=== PATIENT | female | born 1965 | race African-American/Black ===

== ENCOUNTER 2017-12-08 15:03 | Inpatient (IN) | payer OTHER ==
[~2017-12-08] VITALS: Ht 172.7 cm; Wt 56.4 kg
--- NOTE | 2017-12-08 15:46 | ED PSYCHIATRIC COMPLAINT ---
History of Present Illness General Chief Complaint: General Adult Stated Complaint: BIBA PANIC ATTACK/ANXIETY Source: patient Exam Limitations: no limitations Allergies Coded Allergies: No Known Allergies (12/08/17) Triage Note: 51 Y/O FEMALE BIBA TO TRIAGE, C/O "ANXIETY" TODAY WHILE DRIVING HOME. STATES SHE HAS A HX BIPOLAR AND WAS DRIVING FROM WORK WHEN "I BEGAN TO FEEL SCARED AND HAD HEAVINESS ACROSS CHEST". STATES HEAVINESS HAS BEEN PRESENT SINCE TUESDAY. AT PRESENT, PT DENIES ALL COMPLAINTS STATING IT RESOLVED. DENIES SI/HI. TAKEN FOR EKG Triage Nurses Notes Reviewed? yes Onset: Gradual Duration: day(s): Timing: recent history Severity: moderate HPI: 51yo female with hx of bipolar disorder BIBA for anxiety symptoms while drive today. Patient states that she has had increasing anxiety since Tuesday however today she "felt like I was going to ". Patient reports increasing fear and panic, central chest pressure, and feeling faint. She has had chest pressure since Tuesday as well. Patient states that her psychiatrist recently changed one of her bipolar medications because she had low blood pressure. She is unsure if this is related to her recent anxiety. Patient currently takes Ativan 0.5mg BID PRN, she last took this medication this morning around 0730. The patient denies dyspnea, abdominal pain, vomiting, syncope, numbness. (Sasha CAT,Lianna Ventura) Vital Signs & Intake/Output Vital Signs & Intake/Output Vital Signs Date Time Temp Pulse Resp B/P B/P Pulse O2 O2 Flow FiO2 Mean Ox Delivery Rate 12/08 2250 98.0 75 16 149/84 99 Room Air 12/08 2153 98.0 77 22 146/79 99 Room Air 12/08 1913 97.8 83 20 153/83 99 Room Air 12/08 1529 Room Air 12/08 1506 95.7 79 18 149/87 95 Room Air (Latonia COOPER,Mukesh Buchanan) Reconcile Medications Albuterol Sulfate (Ventolin Hfa) 90 MCG HFA.AER.AD 2 PUF INH AD PRN ASTHMA ( Reported) Aspirin (Ecotrin*) 81 MG TABLET.DR 1 TAB PO DAILY HEART/BLOOD (Reported) Bupropion HCl (Bupropion HCl Sr) 200 MG TABLET.ER 1 TAB PO QAM MENTAL HEALTH (Reported) Cyanocobalamin (Vitamin B-12) (Unknown Strength) TABLET (Unknown Dose) PO DAILY SUPPLEMENT (Reported) Dextroamphetamine/Amphetamine (Dextroamp-Amphet ER 10 MG Cap) 10 MG CAP.ER.24H 1 CAP PO QAM ADD (Reported) Dextroamphetamine/Amphetamine (Dextroamp-Amphet ER 15 MG Cap) 15 MG CAP.ER.24H 1 CAP PO QAM ADD (Reported) Lactobacillus Acidophilus (Acidophilus) 1 EACH CAPSULE 1 CAP PO DAILY PROBIOTIC (Reported) Lorazepam 0.5 MG TABLET 1 TAB PO BID ANXIETY (Reported) Lorazepam 1 MG TABLET 1 TAB PO QPM ANXIETY/SLEEP (Reported) Montelukast Sodium 10 MG TABLET 1 TAB PO DAILY ALLERGIES/RESP. (Reported) Oxcarbazepine (Unknown Strength) TABLET (Unknown Dose) UNKNOWN (Reported) Ziprasidone HCl 80 MG CAPSULE 1 CAP PO QPM MENTAL HEALTH (Reported) with food (Taj Saleh MD) Past History Travel History Traveled to [place] past 21 day No Medical History Any Pertinent Medical History? 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 No (Lianna Aguilar) Review of Systems Review of Systems Constitutional: Reports: see HPI. EENTM: Reports: no symptoms. Respiratory: Reports: no symptoms. Cardiovascular: Reports: see HPI. GI: Reports: no symptoms. Genitourinary: Reports: no symptoms. Musculoskeletal: Reports: no symptoms. Skin: Reports: no symptoms. Neurological/Psychological: Reports: see HPI. Hematologic/Endocrine: Reports: no symptoms. Immunologic/Allergic: Reports: no symptoms. All Other Systems: Reviewed and Negative (Lianna Aguilar) Physical Exam Physical Exam General Appearance: well developed/nourished, no apparent distress, alert, awake Head: atraumatic, normal appearance Eyes: Bilateral: normal appearance. Ears, Nose, Throat: hearing grossly normal Neck: normal inspection, supple, full range of motion Respiratory: normal breath sounds, chest non-tender, no respiratory distress, lungs clear Cardiovascular: regular rate/rhythm, normal peripheral pulses Gastrointestinal: normal bowel sounds, soft, non-tender, no organomegaly Extremities: normal range of motion Neurological/Psychiatric: no motor/sensory deficits, awake, alert, normal mood/ affect Appearance/Memory/Insight: appropriate appearance Behavoir/Eye Contact/Speech: cooperative, good eye contact Thoughts/Hallucinations: normal thought pattern, no apparent hallucination Skin: intact, normal color, warm/dry SAD PERSONS Done? patient not suicidal (Sasha CAT,Lianna Ventura) Progress Differential Diagnosis: anxiety, panic disorder, ACS, pericarditis, costocondritis Diagnostic Imaging: Viewed by Me: Radiology Read. Discussed w/RAD: Radiology Read. CXR Impression: PATIENT: SOREN REAVES PRESENT AGE: 51 PATIENT ACCOUNT NO: [id number] : 64 LOCATION: [facility] ORDERING PHYSICIAN: Lianna CAT SERVICE DATE: 12/08/17 EXAM TYPE: RAD - XRY-CHEST XRAY, TWO VIEWS EXAMINATION: XR CHEST CLINICAL INFORMATION: Left chest pain. COMPARISON: None TECHNIQUE: 2 views of the chest were obtained. FINDINGS: No significant abnormality is noted involving the heart, lungs, mediastinum, bony thorax or soft tissues. IMPRESSION: Unremarkable examination. 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 <Electronically signed in Other Vendor System> SIGNED BY: Karl Mitchell MD 12/08/172005 Initial ED EKG: sinus rhythm @71bpm, nonspecific ST changes lateral leads Repeat EKG: changed (Lianna Aguilar) Plan of Care: Orders Procedure Date/time Status Regular Diet 12/09 B Active Patient Data 12/08 2226 Active EKG 12/08 2223 Active OXYGEN SETUP (GEN) 12/08 2000 Active Saline Lock 12/08 2000 Active Admit to inpatient 12/08 2000 Active Vital Signs 12/08 2000 Active Activity/Ambulation 12/08 2000 Active Code Status 12/08 2000 Active TROPONIN LEVEL 12/08 1845 Complete EKG 12/08 1845 Active Intake & Output 12/08 1719 Active TROPONIN LEVEL 12/08 1529 Complete COMPREHENSIVE METABOLIC PANEL 12/08 1529 Complete CBC WITHOUT DIFFERENTIAL 12/08 1529 Complete EKG 12/08 1505 Active Laboratory Tests 12/08/17 1850: Troponin I < 0.01 12/08/17 1545: Anion Gap 12, Estimated GFR > 60, BUN/Creatinine Ratio 17.8, Glucose 85, Calcium 9.8, Total Bilirubin 0.5, AST 22, ALT 40, Alkaline Phosphatase 89, Troponin I < 0.01, Total Protein 8.0, Albumin 4.9, Globulin 3.1, Albumin/Globulin Ratio 1.6, CBC w Diff NO MAN DIFF REQ, RBC 4.26, MCV 92.1, MCH 29.8, MCHC 32.4 L, RDW 12.9 , MPV 6.7 L, Gran % 77.0 H, Lymphocytes % 12.3 L, Monocytes % 9.8 H, Eosinophils % 0.7, Basophils % 0.2, Absolute Granulocytes 5.6, Absolute Lymphocytes 0.9 L, Absolute Monocytes 0.7 H, Absolute Eosinophils 0, Absolute Basophils 0 1818 - Spoke with Dr. Bae regarding this patient's EKG. he recommends repeat EKG, troponin. If repeat studies are negative he will follow-up with the patient as an outpatient. Repeat EKG shows subtle t wave changes with possible ST depressions, appears slightly different than 1st EKG. Patient has persistent chest pressure. These findings were discussed with Dr. Saleh. Will medicate with ASA 325mg and nitro SL. Patient will require hospital admission given EKG changes. Spoke with Dr. Bae who agrees with overnight stay in the hospital, he will consult patient tomorrow. Does report improvement in pain following SL nitroglycerin. Dr. Saleh spoke with Dr. Dove regarding this pateint's telemetry admission. Patient will be admitted to telemetry under hospitalist service. (Sasha CAT,Lianna Ventura) (Latonia COOPER,Mukesh Buchanan) Departure Departure Disposition: STILL A PATIENT Condition: Stable Clinical Impression Primary Impression: Acute electrocardiogram changes Secondary Impressions: Chest pain Qualifiers: Chest pain type: unspecified Qualified Code: R07.9 - Chest pain, unspecified Departure Forms: Customer Survey General Discharge Information Admission Note Spoke With: Derrell COOPER,Kenny Gloria Documentation of Exam: Documentation of any treatments & extenuating circumstances including Concerns Regarding Discharge (functional status, medication knowledge or non-compliance, living conditions, etc.) that warrant an admission rather than observation: [ Chest pain in setting of acute EKG changes requiring cardiology consult, telemetry monitoring, Trend EKGs, repeat troponins, premature discharge medically unsafe] (Sasha CAT,Lianna Ventura) PA/INDUSTRIAL CONTROLS TECHNICIAN Co-Sign Statement Statement: ED Attending supervision documentation- [x] I saw and evaluated the patient. I have also reviewed all the pertinent lab results and diagnostic results. I agree with the findings and the plan of care as documented in the PA's/INDUSTRIAL CONTROLS TECHNICIAN's documentation. Patient presents for evaluation of chest pain just to the right of midline. Physical examination reveals a comfortable appearing woman in no acute respiratory distress. [] I have reviewed the ED Record and agree with the PA's/INDUSTRIAL CONTROLS TECHNICIAN's documentation. [] Additions or exceptions (if any) to the PAs/INDUSTRIAL CONTROLS TECHNICIAN's note and plan are summarized below: [] (Latonia COOPER,Mukesh Bucahnan) PA/INDUSTRIAL CONTROLS TECHNICIAN Co-Sign Statement Statement: ED Attending supervision documentation- x I saw and evaluated the patient. I have also reviewed all the pertinent lab results and diagnostic results. I agree with the findings and the plan of care as documented in the PA's/INDUSTRIAL CONTROLS TECHNICIAN's documentation. Bipolar disorder with chest pain EKG with inferior st t changes. Pain improved with NTG [] I have reviewed the ED Record and agree with the PA's/INDUSTRIAL CONTROLS TECHNICIAN's documentation. [] Additions or exceptions (if any) to the PAs/INDUSTRIAL CONTROLS TECHNICIAN's note and plan are summarized below: [] (Delfino COOPER,Taj)
[2017-12-08 15:52] LABS: ABSOLUTE BASOPHIL COUNT 0 /CUMM (0.0-0.2); ABSOLUTE EOSINOPHIL COUNT 0 /CUMM (0.0-0.7); ABSOLUTE GRANULOCYTE CT 5.6 /CUMM (1.4-6.5); ABSOLUTE LYMPH COUNT 0.9 /CUMM (1.2-3.4); ABSOLUTE MONOCYTE COUNT 0.7 /CUMM (0.10-0.60); BASOPHIL % 0.2 % (0.0-2.0); EOSINOPHIL % 0.7 % (0-5); HEMATOCRIT 39.3 % (37-47); MEAN CORPUSCULAR HGB 29.8 PG (27.0-31.0); MEAN CORPUSCULAR HGB CONC 32.4 G/DL (33.0-37.0); MEAN CORPUSCULAR VOLUME 92.1 FL (81.0-99.0); MEAN PLATELET VOLUME 6.7 FL (7.4-10.4); PLATELET COUNT 335 /CUMM (130-400); RBC DISTRIBUTION WIDTH 12.9 % (11.5-14.5); RED BLOOD CELL CT 4.26 /CUMM (4.20-5.40); WHITE BLOOD CELL COUNT 7.3 /CUMM (4.8-10.8)
--- NOTE | 2017-12-08 20:06 | RADIOLOGY REPORT ---
EXAMINATION: XR CHEST CLINICAL INFORMATION: Left chest pain. COMPARISON: None TECHNIQUE: 2 views of the chest were obtained. FINDINGS: No significant abnormality is noted involving the heart, lungs, mediastinum, bony thorax or soft tissues. IMPRESSION: Unremarkable examination.
[2017-12-08] MEDS ORDERED: DEXTROAMP-AMPHE10 M1 PO (21:15)
[2017-12-08] MEDS ORDERED: DEXTROAMP-AMPHE15 M1 PO (21:15)
[2017-12-08] MEDS ORDERED: ASPIRIN EC81 M1 PO (21:16)
[2017-12-08] MEDS ORDERED: ZIPRASIDONE HCL80 M1 PO (21:16)
[2017-12-08] MEDS ORDERED: BUPROPION HCL200 M2 PO (21:16)
[2017-12-08] MEDS ORDERED: LORAZEPAM0.5 M1 PO (21:52)
[2017-12-08] MEDS ORDERED: OXCARBAZEPINE300 M1 (21:52)
[2017-12-08] MEDS ORDERED: LORAZEPAM1 M1 PO (21:52)
[2017-12-08] MEDS ORDERED: MONTELUKAST SOD10 M1 PO (21:53)
[2017-12-08] MEDS ORDERED: ACIDOPHILUS1 EACH PO (21:53)
[2017-12-08] MEDS ORDERED: VENTOLIN HFA18 GM INH (21:53)
[2017-12-08] MEDS ORDERED: VITAMIN B-121000 MC3 PO (21:53)
--- NOTE | 2017-12-08 22:14 | History & Physical ---
General Information and HPI MD Statement: I have seen and personally examined SOREN REAVES and documented this H&P. The patient is a 51 year old F who presented with a patient stated chief complaint of [chest pain]. Source of Information: patient Exam Limitations: no limitations History of Present Illness: 51-year-old female who was returning from a noted central chest pressure 10 of 10 associated feeling of anxiety, mild nausea, and mild diaphoresis. She denies previous episodes. Risk factors include a familial history of hypertension and dyslipidemia. Allergies/Medications Allergies: Coded Allergies: No Known Allergies (12/08/17) Home Med list Albuterol Sulfate (Ventolin Hfa) 90 MCG HFA.AER.AD 2 PUF INH AD PRN ASTHMA ( Reported) Aspirin (Ecotrin*) 81 MG TABLET.DR 1 TAB PO DAILY HEART/BLOOD (Reported) Bupropion HCl (Bupropion HCl Sr) 200 MG TABLET.ER 1 TAB PO QAM MENTAL HEALTH (Reported) Cyanocobalamin (Vitamin B-12) (Unknown Strength) TABLET (Unknown Dose) PO DAILY SUPPLEMENT (Reported) Dextroamphetamine/Amphetamine (Dextroamp-Amphet ER 10 MG Cap) 10 MG CAP.ER.24H 1 CAP PO QAM ADD (Reported) Dextroamphetamine/Amphetamine (Dextroamp-Amphet ER 15 MG Cap) 15 MG CAP.ER.24H 1 CAP PO QAM ADD (Reported) Lactobacillus Acidophilus (Acidophilus) 1 EACH CAPSULE 1 CAP PO DAILY PROBIOTIC (Reported) Lorazepam 0.5 MG TABLET 1 TAB PO BID ANXIETY (Reported) Lorazepam 1 MG TABLET 1 TAB PO QPM ANXIETY/SLEEP (Reported) Montelukast Sodium 10 MG TABLET 1 TAB PO DAILY ALLERGIES/RESP. 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 pituitary adenoma History of MRSA: No History of VRE: No History of CDIFF: No Pneumonia Vaccine Status: Unknown if ever received Influenza Vaccine Status Unknown if ever received Surgical History Surgical History: non-contributory Past Family/Social History Psychosocial History Where do you live? Home Primary Language: Bengali Smoking Status: Unknown If Ever Smoked Other Social History: disabled Employment History Employment Disability Review of Systems Review of Systems Constitutional: Denies: no symptoms. EENTM: Denies: no symptoms. Cardiovascular: Reports: see HPI. Respiratory: Reports: wheezing. GI: Denies: no symptoms. Genitourinary: Denies: no symptoms. Musculoskeletal: Denies: no symptoms. Skin: Denies: no symptoms. Neurological/Psychological: Reports: anxiety. Hematologic/Endocrine: Denies: no symptoms. Immunologic/Allergic: Denies: no symptoms. Post Menopausal: Yes Mammogram Testing Status: Unknown if test ever done Pap Smear Testing Status: Unknown if test ever done Colonoscopy Testing Status: Unknown if test ever done Exam & Diagnostic Data Last 24 Hrs of Vital Signs/I&O Vital Signs Date Time Temp Pulse Resp B/P B/P Pulse O2 O2 Flow FiO2 Mean Ox Delivery Rate 12/08 2152 98.0 77 22 146/79 99 Room Air 12/08 1913 97.8 83 20 153/83 99 Room Air 12/08 1529 Room Air 12/08 1506 95.7 79 18 149/87 95 Room Air Intake & Output 12/08 1600 12/08 0800 12/08 0000 Intake Total Output Total Balance Patient 126 lb Weight Weight Reported by Patient Measurement Method Physical Exam General Appearance Alert, Oriented X3, Cooperative, No Acute Distress Skin No Rashes Skin Temp/Moisture Exam: Warm/Dry HEENT Atraumatic, PERRLA, EOMI Neck Supple, No JVD, +2 Carotid Pulse wo Bruit Lymphatic Cervical nl Cardiovascular Regular Rate, Normal S1, Normal S2, No Murmurs Lungs Clear to Auscultation, Normal Air Movement Abdomen Soft, No Tenderness Neurological Normal Speech, Normal Tone Extremities No Clubbing, No Cyanosis, No Edema, Normal Pulses Vascular Normal Pulses, Pulses Symmetrical Last 24 Hrs of Labs/Piter: Laboratory Tests 12/08/17 1850: Troponin I < 0.01 12/08/17 1545: Anion Gap 12, Estimated GFR > 60, BUN/Creatinine Ratio 17.8, Glucose 85, Calcium 9.8, Total Bilirubin 0.5, AST 22, ALT 40, Alkaline Phosphatase 89, Troponin I < 0.01, Total Protein 8.0, Albumin 4.9, Globulin 3.1, Albumin/Globulin Ratio 1.6, CBC w Diff NO MAN DIFF REQ, RBC 4.26, MCV 92.1, MCH 29.8, MCHC 32.4 L, RDW 12.9 , MPV 6.7 L, Gran % 77.0 H, Lymphocytes % 12.3 L, Monocytes % 9.8 H, Eosinophils % 0.7, Basophils % 0.2, Absolute Granulocytes 5.6, Absolute Lymphocytes 0.9 L, Absolute Monocytes 0.7 H, Absolute Eosinophils 0, Absolute Basophils 0 Diagnostic Data EKG Results NSR Inverted T waves V3 through V6 CXR Results Normal chest x-ray Assessment/Plan Assessment: Atypical chest pain in a patient with an abnormal EKG As Ranked By This Provider Problem List: 1. Acute electrocardiogram changes 2. Chest pain Qualifiers Chest pain type: unspecified Qualified Code: R07.9 - Chest pain, unspecified Core Measures/Misc (04/17) Acute Coronary Syndrome ACS Diagnosis: No Congestive Heart Failure Congestive Heart Failure Diagnosis No Cerebrovascular Accident CVA/TIA Diagnosis: No VTE (View Protocol) VTE Risk Factors No risk factors No Mechanical VTE Prophylaxis d/t LowRisk-No Interven Req'd No VTE Pharm Prophylaxis d/t LowRisk-No Interven Req'd Sepsis (View protocol) Sepsis Present: No Resident Review Statement Resident Statement: examined this patient, discussed with procurement internship, agreed with procurement internship, reviewed EMR data (avail), reviewed images, amended to note Other Findings: 51-year-old black female with onset of chest pain. Problems: -Chest pain -Abnormal EKG -History of bipolar disorder Plan: -Admit telemetry -Serial troponin EKG -Echocardiogram -Would hold amphetamines -Continue maintenance medications -Cardiology consult Dr. Bae
[2017-12-08 23:19] VITALS: BP 130/90
[2017-12-09 07:25] VITALS: BP 110/70
[2017-12-09 08:04] LABS: ABSOLUTE BASOPHIL COUNT 0 /CUMM (0.0-0.2); ABSOLUTE EOSINOPHIL COUNT 0 /CUMM (0.0-0.7); ABSOLUTE GRANULOCYTE CT 4.4 /CUMM (1.4-6.5); ABSOLUTE LYMPH COUNT 0.7 /CUMM (1.2-3.4); ABSOLUTE MONOCYTE COUNT 0.6 /CUMM (0.10-0.60); BASOPHIL % 0.1 % (0.0-2.0); EOSINOPHIL % 0.7 % (0-5); GRANULOCYTE % 77.3 % (42.2-75.2); HEMATOCRIT 35.6 % (37-47); MEAN CORPUSCULAR HGB 30.1 PG (27.0-31.0); MEAN CORPUSCULAR VOLUME 91.3 FL (81.0-99.0); MEAN PLATELET VOLUME 7.1 FL (7.4-10.4); PLATELET COUNT 281 /CUMM (130-400); RBC DISTRIBUTION WIDTH 12.9 % (11.5-14.5); RED BLOOD CELL CT 3.89 /CUMM (4.20-5.40); WHITE BLOOD CELL COUNT 5.8 /CUMM (4.8-10.8)
--- NOTE | 2017-12-09 08:17 | PN- Housestaff ---
Sam COOPER,[facility] 12/09/17 0816: Subjective Follow-up For: Atypical Chest Pain Anxiety Tele-Events Since Last Visit: NSR with HR 72-90. No overnight events. Subjective: Feels better, was able to get some sleep last night. Denies having chest pain but states she feels a chest tightness. Currently denies feelings of anxiety. Review of Systems Constitutional: Reports: no symptoms. Objective Last 24 Hrs of Vital Signs/I&O Vital Signs Date Time Temp Pulse Resp B/P B/P Pulse O2 O2 Flow FiO2 Mean Ox Delivery Rate 12/09 0725 98.5 84 16 110/70 100 Room Air 12/08 2319 98.6 72 16 130/90 100 Room Air 12/08 2250 98.0 75 16 149/84 99 Room Air 12/08 2153 98.0 77 22 146/79 99 Room Air 12/08 1913 97.8 83 20 153/83 99 Room Air 12/08 1529 Room Air 12/08 1506 95.7 79 18 149/87 95 Room Air Intake & Output 12/09 1600 12/09 0800 12/09 0000 Intake Total 180 Output Total Balance 180 Intake, Oral 180 Patient 124 lb Weight Weight Bed scale Measurement Method Physical Exam General Appearance: Alert, Oriented X3, Cooperative, Mild Distress Skin: No Rashes, No Breakdown Skin Temp/Moisture Exam: Warm/Dry Sepsis Skin Exam (color): Normal for Ethnicity HEENT: Atraumatic Cardiovascular: Normal S1, Normal S2, No Murmurs Lungs: Clear to Auscultation, Normal Air Movement Abdomen: Soft, No Tenderness Neurological: Normal Speech Extremities: No Edema Last 24 Hrs of Lab/Piter Results Last 24 Hrs of Labs/Mics: Laboratory Tests 12/09/17 0620: Anion Gap 12, Estimated GFR > 60, BUN/Creatinine Ratio 16.3, Troponin I < 0.01, CBC w Diff NO MAN DIFF REQ, RBC 3.89 L, MCV 91.3, MCH 30.1, MCHC 33.0, RDW 12.9 , MPV 7.1 L, Gran % 77.3 H, Lymphocytes % 12.1 L, Monocytes % 9.8 H, Eosinophils % 0.7, Basophils % 0.1, Absolute Granulocytes 4.4, Absolute Lymphocytes 0.7 L, Absolute Monocytes 0.6, Absolute Eosinophils 0, Absolute Basophils 0 12/09/17 0150: Troponin I < 0.01 12/08/17 1850: Troponin I < 0.01 12/08/17 1545: Anion Gap 12, Estimated GFR > 60, BUN/Creatinine Ratio 17.8, Glucose 85, Calcium 9.8, Total Bilirubin 0.5, AST 22, ALT 40, Alkaline Phosphatase 89, Troponin I < 0.01, Total Protein 8.0, Albumin 4.9, Globulin 3.1, Albumin/Globulin Ratio 1.6, CBC w Diff NO MAN DIFF REQ, RBC 4.26, MCV 92.1, MCH 29.8, MCHC 32.4 L, RDW 12.9 , MPV 6.7 L, Gran % 77.0 H, Lymphocytes % 12.3 L, Monocytes % 9.8 H, Eosinophils % 0.7, Basophils % 0.2, Absolute Granulocytes 5.6, Absolute Lymphocytes 0.9 L, Absolute Monocytes 0.7 H, Absolute Eosinophils 0, Absolute Basophils 0 Assessment/Plan Assessment: 51 yo F with PMH of asthma, bipolar disorder presented to the ED for anxiety symptoms with severe chest pain and feeling of passing out. In the ED her EKG showed T-wave inversions in anterior leads. Assessment: 1. Atypical Chest Pain with EKG changes 2. History of Bipolar Disorder 3. History of Asthma Plan: * Stable with no more episodes of chest pain. Her cardiac enzymes have been negative. She does report having a stress test 3-4 years ago of which results she does not remember * Echocardiogram to assess for any wall motion abnormalities * ACS was r/o with 3 sets of negative troponins * Cardiology recs appreciated. * Stable to be discharged today with outpatient follow-up. * Patient reports her Trileptal was stopped prior to her admission. * Continue home meds: Albuterol, Bupropion, Lorazepam and Ziprasidone. * Diet: Regular * DVT Prophylaxis: SC Enoxaparin * Code: Full Code Problem List: 1. Chest pain Pain Ratin Pain Location: none Pain Goal: Remain pain free Pain Plan: none Tomorrow's Labs & Rationales: CBC Guera Medley 12/09/17 1015: Attending Review Statement Attending Statement Attending MD Statement: examined this patient, discuss w/resident/PA/PATIENT FINANCIAL REPRESENTATIVE, agreed w/resident/PA/PATIENT FINANCIAL REPRESENTATIVE, discussed with family, reviewed EMR data (avail), discussed with nursing, discussed with case mgmt, reviewed images, amended to note Attending Assessment/Plan: Atypical chest pain in low to intermediate risk patient. EKG with some t wave inversions. Cardiology consulted. Had recent nuclear stress test negative. Her serial cardiac enzymes negative. ECHO as per cardiology. Patient ischemic work up as outpatient and if symptoms recur call 911 or come ot ER immediately.
--- NOTE | 2017-12-09 11:37 | Patient Discharge Instructions ---
Discharge Instructions General Discharge Information You were seen/treated for: Chest Pain Watch for these problems: Chest pain, shortness of breath, feeling of fainting. Please return to the ED for any worsening symptoms or concerns. Special Instructions: Please follow up with your PCP and cvicu nurse within one week of discharge. Have your medications reevaluated. Diet Continue normal diet: Yes Activity Full Activity/No Limits: Yes Acute Coronary Syndrome Inclusion Criteria At DC or during hospital stay patient has or had the following: ACS DIAGNOSIS No Discharge Core Measures Meds if any: Prescribed or Continued at Discharge Meds if any: NOT Prescribed or Continued at Discharge Congestive Heart Failure Inclusion Criteria At DC or during hospital stay patient has or had the following: CHF DIAGNOSIS No Discharge Core Measures Meds if any: Prescribed or Continued at Discharge Meds if any: NOT Prescribed or Continued at Discharge Cerebrovascular accident Inclusion Criteria At DC or during hospital stay patient has or had the following: CVA/TIA Diagnosis No Discharge Core Measures Meds if any: Prescribed or Continued at Discharge Meds if any: NOT Prescribed or Continued at Discharge Venous thromboembolism Inclusion Criteria VTE Diagnosis No VTE Type NONE VTE Confirmed by (Test) NONE Discharge Core Measures - Per Current guidelines, there needs to be overlap - treatment for the first 5 days of Warfarin therapy. - If discharged on Warfarin prior to 5 days of - overlap therapy, the patient will need to be - assessed for post discharge needs including - *Post discharge parental anticoagulation - *Warfarin and/or parental anticoagulation education - *Follow up date to check INR post discharge At least 5 days overlap therapy as Inpatient No Meds if any: Prescribed or Continued at Discharge Note: Overlap Therapy is Warfarin and Anticoagulant Meds if any: NOT Prescribed or Continued at Discharge
--- NOTE | 2017-12-09 13:49 | Cons- Cardiology ---
General Information and HPI Consulting Request Date of Consult: 12/09/17 Requested By: Guera Medley MD Reason for Consult: Chest pain; abnormal EKG Source of Information: patient Exam Limitations: no limitations History of Present Illness: The patient is a 51-year-old -Greek female with no history of any significant medical issues. She has been to the hospital for further evaluation of chest pain syndrome and abnormal EKG. The patient describes her symptoms as moderate central chest discomfort. The symptoms do not radiate. She denies any associated symptoms of shortness of breath, palpitations, etc. She does not feel that the symptoms have been exertional. They have been persistent, waxing and waning. She denies any pleuritic component. Allergies/Medications Allergies: Coded Allergies: No Known Allergies (12/08/17) Home Med List: Albuterol Sulfate (Ventolin Hfa) 90 MCG HFA.AER.AD 2 PUF INH AD PRN ASTHMA ( Reported) Aspirin (Ecotrin*) 81 MG TABLET.DR 1 TAB PO DAILY HEART/BLOOD (Reported) Bupropion HCl (Bupropion HCl Sr) 200 MG TABLET.ER 1 TAB PO QAM MENTAL HEALTH (Reported) Cyanocobalamin (Vitamin B-12) 1,000 MCG TABLET 1 TAB PO DAILY supplement ( Reported) Dextroamphetamine/Amphetamine (Dextroamp-Amphet ER 10 MG Cap) 10 MG CAP.ER.24H 1 CAP PO QAM ADD (Reported) Dextroamphetamine/Amphetamine (Dextroamp-Amphet ER 15 MG Cap) 15 MG CAP.ER.24H 1 CAP PO QAM ADD (Reported) Lactobacillus Acidophilus (Acidophilus) 1 EACH CAPSULE 1 CAP PO DAILY PROBIOTIC (Reported) Lorazepam 0.5 MG TABLET 1 TAB PO BID ANXIETY (Reported) Lorazepam 1 MG TABLET 1 TAB PO QPM ANXIETY/SLEEP (Reported) Montelukast Sodium 10 MG TABLET 1 TAB PO DAILY ALLERGIES/RESP. (Reported) Oxcarbazepine (Unknown Strength) TABLET (Unknown Dose) UNKNOWN (Reported) Ziprasidone HCl 80 MG CAPSULE 1 CAP PO QPM MENTAL HEALTH (Reported) with food Current Medications: Current Medications Sig/Memo Start time Last Medication Dose Route Stop Time Status Admin Albuterol Sulfate 2 PUF BID PRN 12/09 0900 AC INH Aspirin 0 .STK-MED ONE 12/09 2019 DC PO Aspirin 325 MG ONCE ONE 12/08 193 DC 12/08 PO 12/08 Aspirin Buffered 81 MG DAILY 12/09 899 AC 12/09 PO 0952 Bupropion HCl 200 MG DAILY 12/09 899 AC 12/09 PO 0952 Enoxaparin Sodium 40 MG DAILY 12/09 899 AC 12/09 SC 0952 Lorazepam 1 MG QPM 12/09 2100 DC 12/09 PO 0028 Lorazepam 0.5 MG BID 12/09 899 AC 12/09 PO 12/16 0859 0952 Lorazepam 0 .STK-MED ONE 12/08 1547 DC PO Lorazepam 0.5 MG ONE ONE 12/08 1545 DC 12/08 PO 12/08 1546 1546 Nitroglycerin 0 .STK-MED ONE 12/08 2020 DC SL Nitroglycerin 0.4 MG ONCE ONE 12/08 1929 DC 12/08 SL 12/08 Patient Medication 1 ED ONE ONE 12/09 1345 DC Teaching ED 12/09 1346 Ziprasidone 80 MG QPM 12/09 2100 AC PO Ziprasidone 80 MG ONCE ONE 12/09 0430 DC 12/09 PO 12/09 0431 0435 Past History Travel History Traveled to [place] past 21 day No Medical History Blood Transfusion Hx: No Neurological: NONE EENT: NONE Cardiovascular: NONE Respiratory: NONE Gastrointestinal: NONE Hepatic: NONE Renal: NONE Musculoskeletal: NONE Psychiatric: anxiety, bipolar disease Endocrine: NONE Blood Disorders: NONE Cancer(s): NONE PHTHALIC ACID PURIFIER/Reproductive: NONE Other Medical Hx: ? pituitary adenoma Surgical History Surgical History: non-contributory Psychosocial History Where Do You Live? Home Primary Language: Peruvian Smoking Status: Never Smoked Other Social History: disabled Employment History Employment: Disability Exam & Diagnostic Data Vital Signs and I&O Vital Signs Date Time Temp Pulse Resp B/P B/P Pulse O2 O2 Flow FiO2 Mean Ox Delivery Rate 12/09 724 98.5 84 16 110/70 100 Room Air 12/08 2318 98.6 72 16 130/90 100 Room Air 12/08 2249 98.0 75 16 149/84 99 Room Air 12/08 2152 98.0 77 22 146/79 99 Room Air 12/08 1912 97.8 83 20 153/83 99 Room Air 12/08 1529 Room Air 12/08 1506 95.7 79 18 149/87 95 Room Air Intake & Output 12/09 0000 12/08 0812/08 0000 Intake Total 180 Output Total Balance 180 Intake, Oral 180 Patient 124 lb 126 lb Weight Weight Bed scale Reported by Patient Measurement Method Physical Exam: General Appearance: Thin, -Greek female, alert, awake, oriented Head: normal HEENT: Normal Neck: supple, JVP normal, carotid upstrokes normal bilaterally, no masses or thyromegaly Respiratory: chest non-tender, clear to auscultation and percussion bilaterally Cardiovascular: regular rate/rhythm, normal S1, S2, 1/6 systolic murmur Abdomen: normal bowel sounds, soft, non-tender Extremities: normal inspection, no edema Vascular: Pulses are 2+ and equal bilaterally Neurologic: Grossly normal/nonfocal Labs/Piter Results: Laboratory Tests 12/09 12/09 12/08 0620 0150 1850 Chemistry Sodium (137 - 145 mmol/L) 140 Potassium (3.5 - 5.1 mmol/L) 3.9 Chloride (98 - 107 mmol/L) 102 Carbon Dioxide (22 - 30 mmol/L) 26 Anion Gap (5 - 16) 12 BUN (7 - 17 mg/dL) 13 Creatinine (0.5 - 1.0 mg/dL) 0.8 Estimated GFR (>60 ml/min) > 60 BUN/Creatinine Ratio (7 - 25 %) 16.3 Troponin I (< 0.11 ng/ml) < 0.01 < 0.01 < 0.01 Hematology CBC w Diff NO MAN DIFF REQ WBC (4.8 - 10.8 /CUMM) 5.8 RBC (4.20 - 5.40 /CUMM) 3.89 L Hgb (12.0 - 16.0 G/DL) 11.7 L Hct (37 - 47 %) 35.6 L MCV (81.0 - 99.0 FL) 91.3 MCH (27.0 - 31.0 PG) 30.1 MCHC (33.0 - 37.0 G/DL) 33.0 RDW (11.5 - 14.5 %) 12.9 Plt Count (130 - 400 /CUMM) 281 MPV (7.4 - 10.4 FL) 7.1 L Gran % (42.2 - 75.2 %) 77.3 H Lymphocytes % (20.5 - 51.1 %) 12.1 L Monocytes % (1.7 - 9.3 %) 9.8 H Eosinophils % (0 - 5 %) 0.7 Basophils % (0.0 - 2.0 %) 0.1 Absolute Granulocytes (1.4 - 6.5 /CUMM) 4.4 Absolute Lymphocytes (1.2 - 3.4 /CUMM) 0.7 L Absolute Monocytes (0.10 - 0.60 /CUMM) 0.6 Absolute Eosinophils (0.0 - 0.7 /CUMM) 0 Absolute Basophils (0.0 - 0.2 /CUMM) 0 12/08 1545 Chemistry Sodium (137 - 145 mmol/L) 140 Potassium (3.5 - 5.1 mmol/L) 4.4 Chloride (98 - 107 mmol/L) 99 Carbon Dioxide (22 - 30 mmol/L) 29 Anion Gap (5 - 16) 12 BUN (7 - 17 mg/dL) 16 Creatinine (0.5 - 1.0 mg/dL) 0.9 Estimated GFR (>60 ml/min) > 60 BUN/Creatinine Ratio (7 - 25 %) 17.8 Glucose (65 - 99 mg/dL) 85 Calcium (8.4 - 10.2 mg/dL) 9.8 Total Bilirubin (0.2 - 1.3 mg/dL) 0.5 AST (14 - 36 U/L) 22 ALT (9 - 52 U/L) 40 Alkaline Phosphatase (<127 U/L) 89 Troponin I (< 0.11 ng/ml) < 0.01 Total Protein (6.3 - 8.2 g/dL) 8.0 Albumin (3.5 - 5.0 g/dL) 4.9 Globulin (1.9 - 4.2 gm/dL) 3.1 Albumin/Globulin Ratio (1.1 - 2.2 %) 1.6 Hematology CBC w Diff NO MAN DIFF REQ WBC (4.8 - 10.8 /CUMM) 7.3 RBC (4.20 - 5.40 /CUMM) 4.26 Hgb (12.0 - 16.0 G/DL) 12.7 Hct (37 - 47 %) 39.3 MCV (81.0 - 99.0 FL) 92.1 MCH (27.0 - 31.0 PG) 29.8 MCHC (33.0 - 37.0 G/DL) 32.4 L RDW (11.5 - 14.5 %) 12.9 Plt Count (130 - 400 /CUMM) 335 MPV (7.4 - 10.4 FL) 6.7 L Gran % (42.2 - 75.2 %) 77.0 H Lymphocytes % (20.5 - 51.1 %) 12.3 L Monocytes % (1.7 - 9.3 %) 9.8 H Eosinophils % (0 - 5 %) 0.7 Basophils % (0.0 - 2.0 %) 0.2 Absolute Granulocytes (1.4 - 6.5 /CUMM) 5.6 Absolute Lymphocytes (1.2 - 3.4 /CUMM) 0.9 L Absolute Monocytes (0.10 - 0.60 /CUMM) 0.7 H Absolute Eosinophils (0.0 - 0.7 /CUMM) 0 Absolute Basophils (0.0 - 0.2 /CUMM) 0 Diagnostic Data EKG Results Sinus rhythm with T-wave inversions anterior leads CXR Results FINDINGS: No significant abnormality is noted involving the heart, lungs, mediastinum, bony thorax or soft tissues. IMPRESSION: Unremarkable examination. Assessment/Plan Assessment/Plan Assessment: 1. Chest pain syndrome-patient's chest discomfort does not seem to be consistent with cardiac symptoms. Nevertheless, her ECG shows anterior T-wave abnormalities. ECG may be a variant of retained juvenile pattern, however, further evaluation including echocardiogram is warranted. At the moment, the patient is entirely symptom-free. 2. Abnormal EKG 3. Psychiatric history 4. Mild anemia Recommendations: -Serial troponins have been negative. -Serial EKGs are unchanged -The patient remains asymptomatic at the present time. -Ambulate the patient to watch for any further symptoms -Echocardiogram pending -If the echocardiogram is unrevealing, and the patient remains asymptomatic, I believe the patient can be safely discharged home for further evaluation, including a possible stress test as outpatient. Consult Acknowledgment - Thank you for your consult request.
[2017-12-09 14:47] VITALS: BP 102/74
--- NOTE | 2017-12-09 15:08 | Discharge Summary ---
Visit Information Visit Dates Admission Date: 12/08/17 Discharge Date: 12/09/17 Hospital Course Course Attending Physician: Geura Medley MD Primary Care Physician: Ion COOPER,[facility] Hospital Course: 51 yo F with PMH of asthma, bipolar disorder presented to the ED for anxiety symptoms with severe chest pain and feeling of passing out. EKG on admission showed T-wave inversions in anterior leads She was admitted on telemetry unit and treated for 1. Chest Pain 2. Abnormal EKG On admission she had complains of chest pain which subsided overnight. Her symptoms of chest pain did not seem to be consistent with cardiac symptoms. However, given her abnormal EKG changes she was evaluated by cardiology. She was ruled out for ACS with serial troponins which were negative. Her ECG showed persistent anterior T-wave abnormalities which may be a variant of retained juvenile pattern. An echocardiogram was performed which showed normal EF and no wall motion abnormalities. The patient did state that she had been evaluated in the past with a stress test but did not recall the results. She had a brief and stable hospital course. She was advised to follow up with a computer operations technician after discharge for further work up if warranted. Allergies: Coded Allergies: No Known Allergies (12/08/17) Significant Procedures: SERVICE DATE: 12/09/17 EXAM TYPE: CARD - ECHOCARDIOGRAM FINDINGS Left Ventricle Normal global left ventricular size, wall thickness, systolic function with no obvious regional wall motion abnormalities. Normal left ventricular ejection fraction estimated at 60-65%. False chordae in the left ventricle (normal variant). Right Ventricle Normal right ventricular size and function. Right Atrium Normal right atrial size. Left Atrium Normal left atrial size. Mitral Valve Mitral valve thickened. Trace to mild mitral regurgitation. Aortic Valve Trileaflet aortic valve. Focal thickening of the aortic valve cusps. No aortic stenosis. No aortic regurgitation. Tricuspid Valve Tricuspid valve not well visualized, grossly normal. Trace tricuspid regurgitation. Pulmonic Valve Pulmonic valve not well visualized, grossly normal. Pericardium No pericardial effusion. Great Vessels Normal size aortic root and proximal ascending aorta. CONCLUSIONS 1. Minimal aortic sclerosis is present with no valvular stenosis or insufficiency 2. Mitral leaflet thickening is present with minimal to mild mitral insufficiency 3. There is no pericardial fluid detected. 4. The left ventricular chamber size and systolic function are normal. 5. Multiple left ventricular false tendons are present. 6. Minimal tricuspid insufficiency is present. The RV systolic pressure was not accurately assessed. SERVICE DATE: 12/08/17 EXAM TYPE: RAD - XRY-CHEST XRAY, TWO VIEWS FINDINGS: No significant abnormality is noted involving the heart, lungs, mediastinum, bony thorax or soft tissues. IMPRESSION: Unremarkable examination. Disposition Summary Disposition Principal Diagnosis: Chest Pain Syndrome Anxiety Additional Diagnosis: Asthma Bipolar Disorder Discharge Disposition: home health services Discharge Instructions General Discharge Information Code Status: Full Code Patient's Diet: Regular Patient's Activity: As tolerated Follow-Up Instructions/Appts: Please follow up with your PCP and Insulation Board Back Tender within one week of discharge. Please have your medications reevaluated. Medications at Discharge Discharge Medications: Stop taking the following medications: Oxcarbazepine (Oxcarbazepine) (Unknown Strength) TABLET Qty = 60 Continue taking these medications: Dextroamphetamine/Amphetamine (Dextroamp-Amphet ER 10 MG Cap) 10 MG CAP.ER.24H 1 Capsule ORAL Every Morning Qty = 30 Dextroamphetamine/Amphetamine (Dextroamp-Amphet ER 15 MG Cap) 15 MG CAP.ER.24H 1 Capsule ORAL Every Morning Qty = 30 Aspirin (Ecotrin*) 81 MG TABLET.DR 1 Tablet ORAL DAILY Comments: Last Taken:12/09/17 Time:1000 Bupropion HCl (Bupropion HCl Sr) 200 MG TABLET.ER 1 Tablet ORAL Every Morning Qty = 30 Comments: Last Taken:12/09/17 Time:1000 Ziprasidone HCl (Ziprasidone HCl) 80 MG CAPSULE 1 Capsule ORAL Every night Qty = 30 Instructions: with food Comments: Last Taken:12/09/17 Time:0400 Lorazepam (Lorazepam) 0.5 MG TABLET 1 Tablet ORAL TWICE DAILY Qty = 60 Comments: Last Taken:12/09/17 Time:1400 Lorazepam (Lorazepam) 1 MG TABLET 1 Tablet ORAL Every night Qty = 30 Comments: Last Taken:12/08/17 Time:2200 Montelukast Sodium (Montelukast Sodium) 10 MG TABLET 1 Tablet ORAL DAILY Qty = 30 Comments: Last Taken:12/09/17 Time:1000 Albuterol Sulfate (Ventolin Hfa) 90 MCG HFA.AER.AD 2 Puff Inhale through mouth As Directed as needed for ASTHMA Qty = 18 Lactobacillus Acidophilus (Acidophilus) 1 EACH CAPSULE 1 Capsule ORAL DAILY Cyanocobalamin (Vitamin B-12) 1,000 MCG TABLET 1 Tablet ORAL DAILY Copies To: Ion COOPER,Shruthi Pierson
--- NOTE | 2017-12-09 16:19 | ECHOCARDIOGRAM REPORT ---
OSREN REAVES Age: 51 : 1965 Gender: F Exam Date: 12/09/2017 12:20 Exam Location: 1 [address] Ht (in): 68 Wt (lb): 124 BSA: 1.63 BP: 110 / 70 Ordering Physician: Pricilla Vargas MD Referring Physician: Pricilla Vargas MD Technologist: Jagdeep Saunders [facility] Room Number: 174-1 Indications: Chest Pain Rhythm: Sinus Technical Quality: Good FINDINGS Left Ventricle Normal global left ventricular size, wall thickness, systolic function with no obvious regional wall motion abnormalities. Normal left ventricular ejection fraction estimated at 60-65%. False chordae in the left ventricle (normal variant). Right Ventricle Normal right ventricular size and function. Right Atrium Normal right atrial size. Left Atrium Normal left atrial size. Mitral Valve Mitral valve thickened. Trace to mild mitral regurgitation. Aortic Valve Trileaflet aortic valve. Focal thickening of the aortic valve cusps. No aortic stenosis. No aortic regurgitation. Tricuspid Valve Tricuspid valve not well visualized, grossly normal. Trace tricuspid regurgitation. Pulmonic Valve Pulmonic valve not well visualized, grossly normal. Pericardium No pericardial effusion. Great Vessels Normal size aortic root and proximal ascending aorta. CONCLUSIONS 1. Minimal aortic sclerosis is present with no valvular stenosis or insufficiency 2. Mitral leaflet thickening is present with minimal to mild mitral insufficiency 3. There is no pericardial fluid detected. 4. The left ventricular chamber size and systolic function are normal. 5. Multiple left ventricular false tendons are present. 6. Minimal tricuspid insufficiency is present. The RV systolic pressure was not accurately assessed. Tamiko Cuello M.D. (Electronically Signed) Final Date: 09 Dec 2017 16:18 MEASUREMENTS (Male / Female) Normal Values 2D ECHO LV Diastolic Diameter PLAX 4.9 cm 4.2 - 5.9 / 3.9 - 5.3 cm LV Systolic Diameter PLAX 3.3 cm 2.1 - 4.0 cm LV Fractional Shortening PLAX 32.7 % 25 - 46 % LV Ejection Fraction 2D Teich 60.9 % IVS Diastolic Thickness 0.9 cm LVPW Diastolic Thickness 0.8 cm LV Relative Wall Thickness 0.3 RV Internal Dim ED PLAX 2.7 cm 1.9 - 3.8 cm LVOT Diameter 1.8 cm Aortic Root Diameter 2.6 cm LA Systolic Diameter LX 2.3 cm 3.0 - 4.0 / 2.7 - 3.8 cm Ascending Aorta Diameter 2.5 cm DOPPLER AV Peak Velocity 131.0 cm/s AV Peak Gradient 6.9 mmHg AV Mean Velocity 87.9 cm/s AV Mean Gradient 4.0 mmHg AV Velocity Time Integral 26.2 cm LVOT Peak Velocity 104.0 cm/s LVOT Peak Gradient 4.3 mmHg LVOT Mean Velocity 62.7 cm/s LVOT Mean Gradient 2.0 mmHg LVOT Velocity Time Integral 17.8 cm LVOT Stroke Volume 45.3 cm AV Area Cont Eq vti 1.7 cm AV Area Cont Eq pk 2.0 cm MV Peak Velocity 81.0 cm/s MV Peak Gradient 2.6 mmHg MV Mean Velocity 59.3 cm/s MV Mean Gradient 2.0 mmHg Mitral E Point Velocity 62.7 cm/s Mitral A Point Velocity 45.9 cm/s Mitral E to A Ratio 1.4 MV PHT Velocity 93.6 cm/s MV Deceleration [place] 265.0 cm/s MV Pressure Half Time 106.0 ms MV Area PHT 2.1 cm MV Deceleration Time 211.0 ms PV Peak Velocity 80.0 cm/s PV Peak Gradient 2.6 mmHg PV Mean Velocity 62.4 cm/s PV Mean Gradient 2.0 mmHg PV Velocity Time Integral 21.9 cm LV E' Lateral Velocity 17.3 cm/s Mitral E to LV E' Lateral Ratio 3.6 LV E' Septal Velocity 11.8 cm/s Mitral E to LV E' Septal Ratio 5.3
== END 2017-12-09 17:45 | disposition home health service (06) | DRG 313 ==
LOC: ERH 15:03 → 1NO 20:01 → ERHI 20:01 → ENRESERV 22:40 → ENTRNSPT 22:50 → 1NO 23:16 → CMPTRNSPT 12-09 07:05 → 1NO 12-09 09:13 → ENTRNSPT 12-09 17:15 → EDTRNSPT 12-09 17:22 → EDTRNSPTSTS 12-09 17:22 → CMPTRNSPT 12-09 17:36 → 1NO 12-09 17:45
PROVIDERS: Internal Medicine; Physician Assistant
DX: R07.89 Other chest pain (principal); D64.9 Anemia, unspecified; F31.9 Bipolar disorder, unspecified; F41.9 Anxiety disorder, unspecified; Z79.82 Long term (current) use of aspirin; Z79.51 Long term (current) use of inhaled steroids; R94.31 Abnormal electrocardiogram [ECG] [EKG]; J45.909 Unspecified asthma, uncomplicated
CPT/HCPCS: 1NSP; 36592; 71046; 82436; 93005; 93010; 93306; J1650; J2060; J3490